=== PATIENT | female | born 1950 ===

== ENCOUNTER 2018-10-31 07:43 | Outpatient (CLI) | payer OTHER | END 2018-10-31 07:53 | disposition home or self-care (01) | LOC: RAD 07:43 → MAMO-SONO 07:45 → RAD 07:53 | DX: Z12.31 Encounter for screening mammogram for malignant neoplasm of breast (principal); Z87.898 Personal history of other specified conditions; N60.11 Diffuse cystic mastopathy of right breast; E04.8 Other specified nontoxic goiter; K80.20 Calculus of gallbladder without cholecystitis without obstruction ==